=== PATIENT | female | born 1975 | race Caucasian/White ===

== ENCOUNTER 2018-11-13 11:43 | Emergency (ER) | payer SELFPAY ==
[~2018-11-13] VITALS: Ht 167.6 cm; Wt 67.1 kg
[2018-11-13 11:46] VITALS: BP 137/74; PULSE 79; RESP 20; Ht 167.6 cm; Wt 67.1 kg
--- NOTE | 2018-11-13 15:44 | ERD ---
ER Documentation Chief Complaint Chief Complaint Complains of a wood splinter in the right forearm since this am ROS All systems reviewed and are negative except as per history of present illness. Allergies Allergies: Coded Allergies: No Known Allergy (Unverified , 11/13/18) PMhx/Soc Medical and Surgical Hx: pt denies Medical Hx, pt denies Surgical Hx Physical Exam Vitals Vital Signs Date Temp Pulse Resp B/P (MAP) Pulse Ox O2 O2 Flow FiO2 Time Delivery Rate 11/13/18 99.4 79 20 137/74 100 11:46 (95) Physical Exam Const: No acute distress Head: Atraumatic Eyes: Normal Conjunctiva ENT: Normal External Ears, Nose and Mouth. Neck: Full range of motion. No meningismus. Resp: Clear to auscultation bilaterally Cardio: Regular rate and rhythm, no murmurs Abd: Soft, non tender, non distended. Normal bowel sounds Skin: No petechiae or rashes Back: No midline or flank tenderness Ext: No cyanosis, or edema Neur: Awake and alert Psych: Normal Mood and Affect Departure Diagnosis: Primary Impression: Puncture wound Additional Impression: Foreign body in skin or subcutaneous tissue Condition: Stable Additional Instructions: Thank you very much for allowing us to participate in your care. Your health and safety is our top priority at [facility]. Call your primary care doctor TOMORROW for an appointment during the next 2-4 days and bring all the information and medications prescribed. Have prescriptions filled and follow precisely the directions on the label. If the symptoms get worse and your provider is unavailable, return to the Emergency Department immediately. LUCINDA ASCENCIO MD Nov 13, 2018 15:44
[2018-11-13] MEDS ORDERED: SULF1TAB31 PO (15:45)
[2018-11-13] MEDS ORDERED: CEPH-443 PO (15:45)
[2018-11-13] MEDS ORDERED: IBUP-1561 PO (15:45)
== END 2018-11-13 16:07 | disposition home or self-care (01) ==
LOC: FTE 11:43
DX: S51.841A Puncture wound with foreign body of right forearm, initial encounter (principal); W45.8XXA Other foreign body or object entering through skin, initial encounter; Y92.9 Unspecified place or not applicable
CPT/HCPCS: 99283